=== PATIENT | female | born 1950 | race Hispanic/Latino ===

== ENCOUNTER 2018-09-16 05:30 | Day surgery (SDC) | payer MEDICARE ==
[~2018-09-16] VITALS: Ht 162.6 cm; Wt 52.1 kg
[2018-09-16] MEDS ORDERED: SODIUM CHLORIDE 0.9% 1000ML 1,000 ML IV ONE (05:45)
[2018-09-16 06:11] VITALS: BP 98/55
[2018-09-16] MEDS ORDERED: HYDR-4068 PO (06:21)
[2018-09-16] MEDS ORDERED: PROC10TA13 PO (06:21)
[2018-09-16] MEDS ORDERED: AMLO5TAB9 PO (06:21)
[2018-09-16] MEDS ORDERED: DICY20TA11 PO (06:21)
[2018-09-16] MEDS ORDERED: PANT40TA25 PO (06:21)
[2018-09-16] MEDS ORDERED: PROPOFOL 10 MG/ML 20ML VIAL IV ONE (06:38)
[2018-09-16 07:05] VITALS: BP 93/45
[2018-09-16 07:10] VITALS: BP 100/96
[2018-09-16 07:15] VITALS: BP 107/52
[2018-09-16 07:20] VITALS: BP 98/60
[2018-09-16 07:25] VITALS: BP 100/60
== END 2018-09-16 07:34 | disposition home or self-care (01) ==
LOC: ENDO 05:30 → DAH 05:30 → ENDO 07:34
PROVIDERS: ATTEND Internal Medicine
DX: D12.0 Benign neoplasm of cecum (principal); D12.8 Benign neoplasm of rectum; K63.5 Polyp of colon; K31.7 Polyp of stomach and duodenum; K29.50 Unspecified chronic gastritis without bleeding; D50.9 Iron deficiency anemia, unspecified; K57.30 Diverticulosis of large intestine without perforation or abscess without bleeding; K64.0 First degree hemorrhoids; K31.89 Other diseases of stomach and duodenum; I10 Essential (primary) hypertension; Z90.710 Acquired absence of both cervix and uterus; Z98.890 Other specified postprocedural states; Z79.899 Other long term (current) drug therapy; Z88.8 Allergy status to other drugs, medicaments and biological substances
CPT/HCPCS: 43239; 45380; 88305; 88312; 93005; A4606; J2704; J7030

== ENCOUNTER → 2019-01-22 | Outpatient (CLI) | payer MEDICARE ==
[~2019-01-22] MED LIST: AMLO5TAB9 PO; DICY20TA11 PO; HYDR-4068 PO; PANT40TA25 PO; PROC10TA13 PO
[2019-01-22 09:03] LABS: INR 0.96 (0.85-1.15); PROTHROMBIN TIME 10.1 SEC (9.6-11.6)
--- NOTE | 2019-01-22 09:05 | NUR ---
U/S GD PARACENTESIS PROCEDURE PERFORMED BY DR Patito CARLISLE. PUNCTURE SITE LEFT LOWER QUADRANT AND PATIENT TOLERATED PROCEDURE WELL. TOTAL REMOVED 2.8 LITERS OF CLOUDY YELLOW ASCITES FLUID. END OF PROCEDURE AT 0925. CATHETER REMOVED AND DRESSING APPLIED. NO BLEEDING NOTED. SPECIMEN SENT TO LAB. DISCHARGE INSTRUCTIONS GIVEN TO PATIENT AND VERBALIZED UNDERSTANDING. DISCHARGED VIA AMBULATION AT 0945. STABLE, AAO X3 WITH NO C/O PAIN.
[2019-01-22 12:39] LABS: APPEARANCE BODY FLUID CLOUDY (CLEAR); BODY FLUID WBC 743 /cu. mm.; COLOR,BODY FLUID YELLOW (LT YELLOW); SPECIMENTYPE,BODY FLUID ASCITES; TOTAL VOLUME,BODY FLUID 2800 mL
[2019-01-22 12:40] LABS: BODY FLUID RBC 1600 /cu. mm.
[2019-01-22 12:42] LABS: BF EOSINOPHIL 1 %; BF LYMPHOCYTE 19 %; BF MESOTHELIAL 29 %; BF MONOCYTE 33 %
== END ==
LOC: RAH 07:46
PROVIDERS: ATTEND Internal Medicine Hematology & Oncology
DX: R18.8 Other ascites (principal); Z79.01 Long term (current) use of anticoagulants; K76.9 Liver disease, unspecified; N93.0 Postcoital and contact bleeding; I10 Essential (primary) hypertension; Z90.710 Acquired absence of both cervix and uterus; Z98.890 Other specified postprocedural states; Z85.09 Personal history of malignant neoplasm of other digestive organs; Z87.440 Personal history of urinary (tract) infections
CPT/HCPCS: 36415; 49083; 85610; 85730; 87071; 87205; 88108; 88305; 88341; 88342; 89051; A4215